=== PATIENT | female | born 1975 | race Caucasian/White ===

== ENCOUNTER 2018-06-05 00:48 | Emergency (ER) | payer MEDICAID ==
[2018-06-05] MEDS: METHYLPREDNISOLONE 125 MG INJ IV (03:24)
[2018-06-05] MEDS: ONDANSETRON 4 MG INJ IV (03:25)
[2018-06-05] MEDS: morphine 4 MG/ML VIAL IV (03:25)
[2018-06-05 03:28] LABS: ADD MAN DIFF? NO
[2018-06-05 03:55] LABS: ALANINE AMINOTRANSFERASE 17 IU/L (13-69); ALBUMIN 4.3 g/dl (3.3-4.9); ALBUMIN/GLOBULIN RATIO 1.26; ALKALINE PHOSPHATASE 93 IU/L (42-121); ANION GAP 9 (5-13); ASPARTATE AMINO TRANSFERASE 24 IU/L (15-46); BILIRUBIN,INDIRECT 0.1 mg/dl (0-1.1); BILIRUBIN,TOTAL 0.1 mg/dl (0.2-1.3); BLOOD UREA NITROGEN 21 mg/dl (7-20); CALCIUM 9.9 mg/dl (8.4-10.2); CARBON DIOXIDE 30 mmol/L (21-31); CHLORIDE 104 mmol/L (97-110); CREATININE 0.73 mg/dl (0.44-1.00); Estimated GFR > 60 mL/min (>60); GLUCOSE 100 mg/dl (70-220); POTASSIUM 3.8 mmol/L (3.5-5.1); SODIUM 143 mmol/L (135-144); TOTAL PROTEIN 7.7 g/dl (6.1-8.1)
[2018-06-05 03:57] LABS: BASOPHIL # 0.1 10^3/ul (0.0-0.1); BASOPHILS % 0.5 % (0.0-2.0); EOSINOPHILS # 0.8 10^3/ul (0.0-0.5); EOSINOPHILS % 6.9 % (0.0-7.0); HEMATOCRIT 36.7 % (37.0-47.0); HEMOGLOBIN 12.6 g/dl (12.0-16.0); LYMPHOCYTES # 3.6 10^3/ul (0.8-2.9); LYMPHOCYTES % 32.8 % (15.0-51.0); MEAN CORPUSCULAR HEMOGLOBIN 31.8 pg (29.0-33.0); MEAN CORPUSCULAR HGB CONC 34.3 g/dl (32.0-37.0); MEAN CORPUSCULAR VOLUME 92.7 fl (82.0-101.0); MEAN PLATELET VOLUME 12.3 fl (7.4-10.4); MONOCYTE # 0.6 10^3/ul (0.3-0.9); MONOCYTES % 5.6 % (0.0-11.0); NEUTROPHIL # 5.9 10^3/ul (1.6-7.5); NEUTROPHILS % 53.9 % (39.0-77.0); PLATELET COUNT 192 10^3/UL (140-415); RED BLOOD COUNT 3.96 10^6/ul (4.20-5.40); RED CELL DISTRIBUTION WIDTH 12.1 % (11.5-14.5)
[2018-06-05] MEDS: IOHEXOL 300MG/ML 150 ML BTL (04:43)
[2018-06-05] MEDS: SOD CHLORIDE 0.9% 100 ML (04:43)
[2018-06-05] MEDS: CEFTRIAXONE 1 GM/50 ML (PMX) 50 ML IVPB (06:14)
[2018-06-05] MEDS: METOCLOPRAMIDE 10 MG INJ IV (07:16)
== END 2018-06-05 07:43 | disposition home or self-care (01) ==
LOC: FTE 00:48
DX: K12.2 Cellulitis and abscess of mouth (principal); R05 Cough
CPT/HCPCS: 70360; 70491; 71046; 80053; 85025; 87400; 87880; 96374; 96375; 99285-25

== ENCOUNTER 2018-06-22 07:36 | Emergency (ER) | payer MEDICAID ==
[2018-06-22] MEDS: ACETAMINOPHEN 325 MG TAB PO (08:31)
== END 2018-06-22 11:20 | disposition home or self-care (01) ==
LOC: FTE 07:36
DX: S06.9X9A Unspecified intracranial injury with loss of consciousness of unspecified duration, initial encounter (principal); R51 Headache; Y04.8XXA Assault by other bodily force, initial encounter
CPT/HCPCS: 70450; 72125; 81025; 99284-25

== ENCOUNTER 2018-06-22 14:22 | Emergency (ER) | payer MEDICAID | END 2018-06-22 15:45 | disposition home or self-care (01) | LOC: FTE 14:22 | DX: T74.11XA Adult physical abuse, confirmed, initial encounter (principal); Z09 Encounter for follow-up examination after completed treatment for conditions other than malignant neoplasm | CPT/HCPCS: 99283; Z7502 ==

== ENCOUNTER 2018-06-25 12:06 | Emergency (ER) | payer MEDICAID | END 2018-06-25 14:40 | disposition home or self-care (01) | LOC: FTE 12:06 | DX: Z48.01 Encounter for change or removal of surgical wound dressing (principal) | CPT/HCPCS: 99281; Z7502 ==